=== PATIENT | female | born 1940 | race Caucasian/White ===

== ENCOUNTER → 2016-06-21 | Outpatient (CLI) | payer MEDICARE ==
[~2016-06-21] MED LIST: BISO5TAB PO; CHOL10002 PO; ENAL10TA PO; FLC1T PO; HCT25T PO; LACTAID3000 UNI1 PO; LEVO88TA4 PO; MULT1TAB69 PO; OMG1KC PO
--- NOTE | 2016-06-21 12:16 | Diagnostic Imaging Report ---
INDICATION: Right knee pain. COMPARISON: None. FINDINGS: Two views of the right knee demonstrate mild to moderate tricompartment degenerative joint disease. This is most pronounced involving the patellofemoral joint. Patellofemoral osteophytosis is noted. There is a small joint effusion. There is no fracture or dislocation. IMPRESSION: Mild to moderate tricompartment degenerative joint disease. Dictated by: Dictated on workstation # [id number]
== END ==
LOC: RAD 10:47
PROVIDERS: ATTEND Physician Assistant
DX: M25.561 Pain in right knee (principal); M17.11 Unilateral primary osteoarthritis, right knee
CPT/HCPCS: 73560

== ENCOUNTER → 2016-07-12 | Outpatient (CLI) | payer MEDICARE | LOC: RAD 12:05 | PROVIDERS: ATTEND Family Medicine | DX: M54.2 Cervicalgia (principal); R51 Headache; W19.XXXA Unspecified fall, initial encounter | CPT/HCPCS: 70450; 72125; 73000 ==